=== PATIENT | male | born 1975 | race Caucasian/White ===

== ENCOUNTER 2017-02-13 09:18 | Emergency (ER) | payer BC ==
--- NOTE | ~2017-02-13 | CT71 ---
[facility] A Service of [facility] & [facility] RADIOLOGY TEXT RESULTS PATIENT: CON DAMON LOCATION: [facility] : 73 UNIT #: [id number] AGE: [address]: Adolfo Carrero MD SEX: M ORDER DR: [id number] [facility] [address] [place], [place] [address] [id number] E MR#: [id number] Acc #: [id number] NAME: CON DAMON : 1975 SEX: M STUDY DATE/TIME: 02/13/2017 8:41 UNIT: [facility] ROOM: STUDY DESCRIPTION: CT Head Wo Contrast Attending Physician: Adolfo Carrero M.D. Referring Physician: Self Referral-Refer Use Only Ordering Physician: Adolfo Carrero M.D. Primary Care Physician: Primary Care Physician No MEDICAL IMAGING REPORT This report is preliminary unless electronic signature is present EXAM CT head 02/13/2017 HISTORY Headaches since 0100 hours. No known injury. All over. Hypertension, stroke, TIA. TECHNIQUE CT head performed skull base through vertex without intravenous contrast. This CT exam was performed with one or more of the following radiation dose reduction techniques: automatic exposure control, adjustment of mA and/or kV according to patient size, and iterative reconstruction. COMPARISON 02/05/2014 FINDINGS Brainstem unremarkable. Cerebellum and cerebral hemispheres show normal mota matter - white matter differentiation without evidence of acute intracranial hemorrhage or acute cortical ischemia. The midline structures are nondisplaced. The basal ganglia show focal areas of diminished density bilateral inferior lentiform nuclei. Appearance in location favors dilated perivascular spaces. Small of chronic lacunar infarcts could be considered. No change from prior study. No acute-appearing basal ganglia abnormality. The ventricles, cisterns and sulci normal in size and contour. There is no intra or extraaxial mass effect and no abnormal intracranial fluid collection. The intraorbital soft tissues are unremarkable. Mucosal thickening and air-fluid level right frontal sinus. Extensive mucosal thickening and opacification of bilateral ethmoid air cells. Small air-fluid levels bilateral sphenoid sinuses. Air-fluid levels bilateral maxillary sinuses. No acute bony abnormality. [facility] A Service of [facility] & [facility] RADIOLOGY TEXT RESULTS PATIENT: CON DAMON LOCATION: [facility] : 73 UNIT #: [id number] AGE: [address]: Adolfo Carrero MD SEX: M ORDER DR: IMPRESSION 1. No acute abnormality in brain. If patient has ongoing neurologic symptoms, consider follow up imaging, preferably with MRI if patient is a candidate. 2. Extensive sinusitis. Extensive near complete opacification of ethmoid air cells. Small air-fluid levels in the right frontal sinus and bilateral sphenoid sinuses. Moderate air-fluid levels in the bilateral maxillary sinuses. Dictated by... Filipe Valenzuela M.D. THIS IS AN ELECTRONICALLY VERIFIED REPORT Filipe Valenzuela M.D. at 02/14/2017 6:03 PM HYUN/myriam TD: 02/13/2017 12:06 JOB #: [id number] MEDICAL IMAGING REPORT Page 1 of 1 COPY
[~2017-02-13 09:18] MED LIST: BAYER ASPIRIN325 M1 PO; DIAZEPAM PO; FLEXERIL10 M1 PO; FLUOXETINE HCL20 M1 PO; HYDROCODON-ACE1 EAC7 PO; LOTENSIN20 MG PO; SIMVASTATIN20 MG PO
== END 2017-02-13 10:20 | disposition home or self-care (01) ==
LOC: CED 09:18
DX: J32.9 Chronic sinusitis, unspecified (principal); I10 Essential (primary) hypertension
CPT/HCPCS: 36415; 70450; 96361; 96374; 96375; 99284; J0780; J1100; J1200

== ENCOUNTER 2017-06-19 07:41 | Emergency (ER) | payer BC ==
[~2017-06-19] VITALS: Ht 180.3 cm; Wt 108.9 kg
--- NOTE | ~2017-06-19 | EKG ---
PATIENT: CON DAMON UNIT #: [id number] Ventricular Rate: 81 BPM Atrial Rate: 81 BPM P-R Interval: 138 ms QRS Duration: 94 ms Q-T Interval: 382 ms QTC Calculation(Bezet): 443 ms P Amasa: -5 degrees Calculated R Amasa: 1 degrees Calculated T Amasa: 26 degrees Diagnosis Line: Sinus rhythm with Premature atrial complexes with Diagnosis Line: Aberrant conduction Diagnosis Line: Otherwise normal ECG Diagnosis Line: When compared with ECG of 05-FEB-2014 18:08, Diagnosis Line: Aberrant conduction is now Present Diagnosis Line: Confirmed by PAUL RAMSAY MD ([id number]) on Diagnosis Line: 06/19/2017 8:56:53 AM INTERPRETING MD: DEVENDRA PINZON
--- NOTE | ~2017-06-19 | CR72 ---
[facility] A Service of [facility] & [facility] RADIOLOGY TEXT RESULTS PATIENT: CON DAMON LOCATION: [facility] : 73 UNIT #: [id number] AGE: [address]: Everette Cardenas MD SEX: M ORDER DR: [id number] [facility] [address] [place], [place] [address] [id number] E MR#: [id number] Acc #: [id number] NAME: CON DAMON : 1975 SEX: M STUDY DATE/TIME: 06/19/2017 8:00 UNIT: [facility] ROOM: STUDY DESCRIPTION: CR Chest Single View Portable Attending Physician: Everette Cardenas M.D. Ordering Physician: Everette Cardenas M.D. Primary Care Physician: Primary Care Physician No MEDICAL IMAGING REPORT This report is preliminary unless electronic signature is present EXAM Portable chest INDICATION Chest pain and neck tightness for 2 days. COMPARISON 12/13/2016. FINDINGS Bilateral calcified granulomas. No acute airspace consolidation. Heart size upper normal. The visualized osseous structures are unremarkable. IMPRESSION No active disease. Dictated by... Soren Abel M.D. THIS IS AN ELECTRONICALLY VERIFIED REPORT Soren Abel M.D. at 06/20/2017 4:39 PM KATIE/betzy TD: 06/19/2017 14:02 JOB #: [id number] MEDICAL IMAGING REPORT Page 1 of 1 COPY
[2017-06-19 08:22] LABS: BASOPHIL# 0.1 X10e3 (0-0.3); BASOPHIL% 1.4 % (0-2.5); EOSINOPHIL# 0.4 X10e3 (0-0.7); EOSINOPHIL% 5.6 % (0.0-7.0); HEMATOCRIT 45.7 % (38.0-50.0); HEMOGLOBIN 15.8 gm/dL (13.0-16.0); LYMPHOCYTE# 2.3 X10e3 (1.0-3.5); LYMPHOCYTE% 34.2 % (17.0-45.0); MEAN CELL VOLUME 90.3 FL (83-96); MEAN CORPUSCULAR HEMOGLOBIN 31.2 PG (28-34); MEAN CORPUSCULAR HGB CONC 34.6 g/dL (30-36); MEAN PLATELET VOLUME 8.4 FL (6.5-11.5); MONOCYTE# 0.6 X10e3 (0-1.0); MONOCYTE% 8.6 % (3.0-12.0); NEUTROPHIL# 3.3 X10e3 (1.5-7.1); NEUTROPHIL% 50.2 % (40-75); PLATELET COUNT 185 X10e3 (140-420); RED BLOOD COUNT 5.06 X10e (3.90-5.60); RED CELL DISTRIBUTION WIDTH 12.7 % (11.0-15.5); WHITE BLOOD COUNT 6.6 X10e3 (4.0-10.5)
[2017-06-19 08:25] LABS: DIFF IND NO
[2017-06-19 08:40] LABS: POC - CKMB <1.0 ng/mL (0.0-7.9); POC - TROPONIN <0.05 ng/mL (<=0.05)
[2017-06-19 08:54] LABS: BILIRUBIN, DIRECT 0.1 mg/dL (0.0-0.2); BILIRUBIN,INDIRECT 0.3 mg/dL (0.0-0.9); BILIRUBIN,TOTAL 0.4 mg/dL (0.2-2.0); BUN/CREATININE RATIO 8.88; CREATININE SERUM 0.9 mg/dL (0.6-1.4); POTASSIUM 3.7 mmol/L (3.5-5.1); PROTEIN TOTAL SERUM 6.8 g/dL (6.0-8.3)
[2017-06-19 09:02] LABS: URINE SOURCE CLEAN CATCH
[2017-06-19 09:08] LABS: URINE APPEARANCE CLEAR; URINE BILIRUBIN NEG (NEG); URINE BLOOD NEG (NEG); URINE COLOR YELLOW; URINE GLUCOSE NEG (NEG); URINE KETONE NEG (NEG); URINE LEUKOCYTE ESTERASE NEG (NEG); URINE NITRATE NEG (NEG); URINE PH 6.5 (5-8); URINE PROTEIN NEG (NEG); URINE UROBILINOGEN 0.2 MG/DL (NEG)
[2017-06-19 09:10] LABS: CULTURE INDICATED? NO
[2017-06-19 09:25] LABS: AMPHETAMINE NEG (NEG); BARBITURATES NEG (NEG); BENZODIAZEPINES NEG (NEG); COCAINE NEG (NEG); MARIJUANA NEG (NEG); OPIATES NEG (NEG); TRICYCLIC ANTIDEPRESSANTS NEG (NEG); U METHADONE NEG (NEG)
[2017-06-19 10:01] LABS: POC - CKMB <1.0 ng/mL (0.0-7.9); POC - TROPONIN <0.05 ng/mL (<=0.05)
== END 2017-06-19 10:37 | disposition home or self-care (01) ==
LOC: CED 07:41
PROVIDERS: Emergency Medicine
DX: M54.2 Cervicalgia (principal); I10 Essential (primary) hypertension; M79.604 Pain in right leg; M79.605 Pain in left leg; F17.210 Nicotine dependence, cigarettes, uncomplicated
CPT/HCPCS: 36415; 71010; 80048; 80076; 80307; 81003; 82550; 82553; 82947; 84484; 85025; 93005; 96360; 99284